=== PATIENT | male | born 1990 | race Caucasian/White ===

== ENCOUNTER 2020-07-03 21:39 | Emergency (ER) | payer SELFPAY ==
[~2020-07-03] VITALS: Ht 182.9 cm; Wt 73.0 kg
[2020-07-03 21:40] VITALS: BP 127/85
== END 2020-07-03 21:58 | disposition left against medical advice (07) ==
LOC: ER 21:39
DX: S61.211A Laceration without foreign body of left index finger without damage to nail, initial encounter (principal); X99.8XXA Assault by other sharp object, initial encounter; Y93.89 Activity, other specified; Y92.018 Other place in single-family (private) house as the place of occurrence of the external cause; Y07.04 Female partner, perpetrator of maltreatment and neglect
CPT/HCPCS: 99283